=== PATIENT | male | born 1950 | race Caucasian/White ===

== ENCOUNTER 2025-05-15 06:49 | Day surgery (SDC) | payer MEDICARE ==
[2025-05-15] VITALS (8 sets, daily range): BP systolic 115–142; BP diastolic 61–81; PULSE 35–60; RESP 16; TEMP 97.8; O2SAT 92–100
[~2025-05-15] VITALS: Ht 188 cm; Wt 114.4 kg
[2025-05-15] MEDS ORDERED: VANCOMYCIN 1,500MG in normal saline IV soln 300 ML IV ONE (07:10)
[2025-05-15] MEDS ORDERED: ceFAZolin 2gm/dext,iso 50mL 50 ML IV ONE (07:10)
--- NOTE | 2025-05-15 07:26 | ELECTROCARDIOGRAPH REPORT ---
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 SHILPA Mario Measurements Intervals [place] Rate: 33 P: 59 TX: 192 QRS: 37 QRSD: 149 T: 23 QT: 536 QTc: 398 Interpretive Statements Second-degree AV block Right bundle branch block Electronically Signed On 05-15-2025 15:43:[address] SHILPA Mario Please click the below link to view image of tracing.
[2025-05-15 07:31] LABS: MEAN PLATELET VOLUME 9.2 FL (7.4-10.4); RED CELL DISTRIBUTION WIDTH 14.2 % (11.5-14.5)
[2025-05-15] MEDS ORDERED: TAMS-55 PO (07:41)
[2025-05-15] MEDS ORDERED: MULT-1085 PO (07:41)
[2025-05-15] MEDS ORDERED: LOSA-415 PO (07:41)
[2025-05-15] MEDS ORDERED: LOVA20TA2 PO (07:41)
[2025-05-15] MEDS ORDERED: EZET10TA80 PO (07:41)
[2025-05-15] MEDS ORDERED: CARV-50 PO (07:41)
[2025-05-15] MEDS ORDERED: ASPI-1674 PO (07:41)
[2025-05-15 07:42] LABS: INR 1.0 INR
[2025-05-15 07:59] LABS: CREATININE 0.81 MG/DL (0.60-1.10); TOTAL CARBON DIOXIDE 25.8 MMOL/L (24-32); eCRCL 90 ML/MIN; eGFR > 90 ML/MIN
[2025-05-15] MEDS: VANCOMYCIN/WATER FOR INJ (PEG) 1.5GM/300 ML IVPB IV ONE (08:26)
[2025-05-15] MEDS: normal saline 1000ml 1,000 ML IV SCH (08:32)
[2025-05-15] MEDS ORDERED: midazolam 1 mg/ML 2ml injection ONE ×2 (08:36→09:33)
[2025-05-15] MEDS ORDERED: fentaNYL/PF 50MCG/1 ML 2ML syringe ONE (08:36)
[2025-05-15] MEDS ORDERED: LIDOcaine 1% W/epiNEPHrine 1:100,000 20ml vial ONE (08:36)
[2025-05-15] MEDS ORDERED: vancomycin 1,000mg inj ONE (08:36)
[2025-05-15] MEDS ORDERED: iohexol 350 MG/ML 50ML vial IV ONE (08:51)
[2025-05-15] MEDS ORDERED: ketorolac trometh 15mg/ml vial 15 MG/ML ML IV ONE (10:55)
[2025-05-15] MEDS ORDERED: normal saline 1000ml 1,000 ML IV SCH (10:55)
[2025-05-15] MEDS ORDERED: HYDROcodone/acetaminophen 10/325mg tab PO PRN (10:55)
[2025-05-15] MEDS: HYDROcodone/acetaminophen 5mg/325mg tablet PO PRN (11:12)
--- NOTE | 2025-05-15 11:28 | CARDIOLOGY REPORT ---
DATE OF SERVICE: 05/15/2025 DICTATING PHYSICIAN: ROBERT GUERRA DO REFERRING PHYSICIAN: Robert Guerra DO. PROCEDURES PERFORMED: * Implantation of permanent dual-chamber pacemaker with endocardial electrodes. * 45 minutes conscious sedation supervision. PREOPERATIVE DIAGNOSIS: Complete heart block, alternating with Mobitz II AV block. POSTOPERATIVE DIAGNOSIS: Complete heart block, alternating with Mobitz II AV block. CLINICAL HISTORY: This patient presented to my office last week feeling well, but his ECG clearly demonstrated complete heart block. Heart rate was in the low 40s. A pacemaker was recommended. Today, his ECG demonstrates Mobitz II AV block with a heart rate in the mid to low 30s. ANESTHESIA: Conscious sedation with local to skin. DEVICES IMPLANTED: Medtronic right ventricular electrode model #4076 and serial #[id number]; Medtronic atrial electrode model #5076 and serial #[id number]; Medtronic pulse generator, model #W3DR01, and serial #[id number]. DESCRIPTION OF PROCEDURE: The patient was sedated with fentanyl and Versed. He was then prepared and draped in the usual manner. The left pectoral area was liberally infiltrated with 1% lidocaine containing a 1:100,000 mixture of epinephrine. Using a micropuncture set, two sheaths were placed in the subclavian vein. A 5 cm pocket was made in close proximity to the wires. A subcutaneous pocket was created with electrocautery. The wires were pulled through and two sheaths were ultimately placed in the central venous circulation. Using this sheath, the right ventricular electrode was placed ultimately on the mid to high interventricular septum and the right atrial electrode in the right atrial appendage. The screws were extended. The stylet was withdrawn and sensing and pacing demonstrated satisfactory numbers for both impedance and capture thresholds. The capture thresholds on both electrodes was 1 volt at a pulse width of 0.4 milliseconds. Sheaths were removed and a 3-0 Vicryl suture was placed around the electrodes at their exit point from the pectoral fascia. The electrodes were further secured to the pectoral fascia using 2-0 Ethibond sutures around the sleeves. Next, the electrodes were attached to the generator and together they were placed in the pocket. The generator was suspended with an 0 Ethibond suture. The pocket was irrigated with a vancomycin antibiotic solution. The subcutaneous layer was closed with 3-0 Vicryl and the skin was approximated with 4-0 Monocryl. ESTIMATED BLOOD LOSS: About 30 mL. Initial adia parameters were as follows: Mode DDD, LRL 60 ppm, upper activity and upper tracking rate 130 ppm, paced AV delay 180 milliseconds, sensed AV delay 150 milliseconds. Amplitude and pulse width on both electrodes was set at 3.5 volts and 0.4 milliseconds. Atrial sensitivity 0.3 millivolts, right ventricular sensitivity 0.9 millivolts. Chest x-ray pending at the time of this dictation. ROBERT GUERRA DO TID: [id number] RECEIPT: [id number] RP/GIULIANO
--- NOTE | 2025-05-15 11:32 | RADIOLOGY REPORT ---
CHEST RADIOGRAPH Indication: POST OP PACEMAKER Technique: Single frontal view of the chest was obtained Comparison: None FINDINGS: Lines and Tubes: Dual lead left pacemaker with leads in appropriate positioning. Lungs: No focal consolidation. Pleura: No effusion. No pneumothorax. Cardiomediastinal contours: Cardiomegaly. Bones: No acute osseous abnormality. IMPRESSION: No acute cardiopulmonary disease.
== END 2025-05-15 12:50 | disposition home or self-care (01) ==
LOC: SSTAY O 06:49
PROVIDERS: ATTEND Internal Medicine Cardiovascular Disease
DX: I44.2 Atrioventricular block, complete (principal); I45.10 Unspecified right bundle-branch block; I10 Essential (primary) hypertension; I25.10 Atherosclerotic heart disease of native coronary artery without angina pectoris; E78.00 Pure hypercholesterolemia, unspecified; Z79.899 Other long term (current) drug therapy; Z95.5 Presence of coronary angioplasty implant and graft
CPT/HCPCS: 33208; 36415; 71045; 80048; 83735; 85025; 85610; 93005; 99152; 99153; A4565; A6258; C1785; C1898; J2250; J3010; J3373; J3375; J3490; J7030; Q9967; Z7610